=== PATIENT | female | born 1980 | race African-American/Black ===

== ENCOUNTER 2018-01-19 10:26 | Day surgery (SDC) | payer OTHER ==
[2018-01-18 13:12] VITALS: BMI 32.3
[2018-01-19] MEDS ORDERED: LIDOCAINE HCL/PF 2% SDV 5ML VIAL ONE (11:22)
[2018-01-19] MEDS ORDERED: PROPOFOL 20 ML ONE (11:23)
[2018-01-19] MEDS ORDERED: MIDAZOLAM HCL 2 MG/2 ML SINGLE DOSE VIAL ONE (11:23)
[2018-01-19] MEDS ORDERED: ROCURONIUM BROMIDE 50 MG/5 ML VIAL ONE (11:23)
--- NOTE | 2018-01-19 11:41 | HP ---
Satellite [facility] - Chief Complaint History of Present Illness: 37 year old woman with ESRD on HD via Permacath. She has had severeal failed AV access attempts and now wishes to transition to peritoneal dialysis. History Source: Patient Limitations to Obtaining History: No Limitations - Past Medical History Allergies/Adverse Reactions: Allergies Allergy/AdvReac Type Severity Reaction Status Date / Time No Known Allergies Allergy Verified 01/18/18 13:12 Cardiovascular: Yes: HTN Renal/: Yes: Renal Failure, Hemodialysis ...LMP Comment: 3 years ago-pt has IUD Additional Medical History: Umbilical hernia repair as child - Current Medications Current Medications: Home Medications Medication Instructions Recorded Calcium Acetate [Phoslo -] 667 mg PO BID 01/18/18 Labetalol HCl 100 mg PO BID 01/18/18 Satellite Physical Exam - Physical Examination Vital Signs: Vital Signs Period Temp Pulse Resp BP Sys/Wetzel Pulse Ox Last 24 Hr 98.5 F-98.5 F 88-88 18-18 139-139/68-68 99 General Appearance: Alert & Oriented x3 ENT: Clear Lung: Clear to auscultation Heart: Regular rate & rhythm Abdomen: Soft, No masses Extremities: No edema Satellite Impression/Plan - Impression/Plan Impression: ESRD on HD Operative Procedure: Laparoscopic placement of peritonneal dialysis catheter Date to be Performed: 01/19/18
[2018-01-19] MEDS ORDERED: LIDOCAINE HCL 2% (20ML MULTI-DOSE VIAL) NR ONE (11:50)
[2018-01-19] MEDS ORDERED: METOPROLOL TARTRATE 5 MG/5 ML VIAL ONE (12:03)
[2018-01-19] MEDS ORDERED: BUPIVACAINE HCL/PF 0.5% (5MG/ML) 10 ML VIAL IJ ONE ×2 (12:08)
[2018-01-19] MEDS ORDERED: NEOSTIGMINE METHYLSULFATE 0.5 MG/ML - 10 ML MDV ONE (12:19)
[2018-01-19] MEDS ORDERED: GLYCOPYRROLATE 0.2 MG/1 ML VIAL ONE (12:19)
--- NOTE | 2018-01-19 12:51 | OP ---
Operative Note - Note: Operative Date: 01/19/18 Pre-Operative Diagnosis: ESRD on HD Operation: Laparoscopy, lysis of adhesions, omentopexy, placement peritoneal dialysis catheter Findings: Adhesions of omentum and uterus to anterior abdominal wall. Redundant omentum Implants: Axtell neck double cuff Tenchkoff catheter Surgeon: Kee Guerrier Anesthesiologist/CUSTOMER SERVICE ASSISTANT: Tamra Herring Anesthesia: General
[2018-01-19 14:19] VITALS: TEMP 98.2
[2018-01-19] MEDS ORDERED: ACETAMINOPHEN 325 MG TABLET (FP) PO PRN (14:51)
[2018-01-19] MEDS ORDERED: oxyCODONE HCL 5 MG TABLET PO PRN (14:52)
[2018-01-19 15:11] VITALS: BP 141/90; PULSE 77
--- NOTE | 2018-01-19 15:55 | OP ---
DATE OF OPERATION: 01/19/2018 SURGEON: Kee Maxwell MD PROCEDURE: Laparoscopy with lysis of adhesions, omentopexy, placement of peritoneal dialysis catheter. PREOPERATIVE DIAGNOSIS: End-stage renal disease, on hemodialysis. POSTOPERATIVE DIAGNOSIS: End-stage renal disease, on hemodialysis, with intra-abdominal adhesions. ANESTHESIA: General. ANESTHESIOLOGIST: Tamra Herring M.D. OPERATIVE FINDINGS: There were adhesions of the omentum and the fundus of the uterus to the anterior abdominal wall, extending down into the pelvis. OPERATIVE PROCEDURE: Following routine patient identification, general anesthesia was induced. The abdomen was prepped with ChloraPrep. A time-out was performed. Marcaine 0.5% was infiltrated subcutaneously in all incision lines. A small incision made in the midline of the upper abdomen, and Veress needle inserted atraumatically. Pneumoperitoneum was established with carbon dioxide to 15 mmHg. The needle was removed, and a 5-mm Opti-Port was placed under direct visualization. Abdominal exploration was then carried out with an angled 5-mm scope. A second 5-mm port was placed in the left abdominal wall under direct vision. A Harmonic scalpel was used to divide adhesions of omentum and the uterus to the anterior abdominal wall, to free the pelvis for catheter placement. The omentum appeared to be redundant and required omentopexy. A 20-gauge spinal needle was inserted in the right upper quadrant under direct visualization, and a 2-0 Prolene suture advanced into the peritoneal cavity, where it was grasped by a non-crushing clamp. The needle was removed. Then a Yo-Mahsa suture passer was advanced through the same incision, at a different site in the abdominal wall fascia, through the omentum, and the suture was grasped and pulled out of the abdominal wall incision and tied securely, fixing the omentum to the right upper quadrant. An incision was then made above and to the left of the umbilicus, and an 8-mm bladeless trocar was advanced under visualization to the underside of the peritoneum, and it was then directed inferiorly towards the pelvis. The trocar was brought into the peritoneal cavity at the top of the true pelvis. A [place]-neck, curled, double-cuffed Tenckhoff catheter was then straightened with a wire and passed through the 8-mm port and was deployed into the pelvis. The port was removed, leaving the inner cuff just under the fascia and the outer cuff at the skin level. A curved metal tunneler was then attached to the end of the catheter and was passed in the subcutaneous plan to exit in the right lower quadrant at the previously marked site. Pneumoperitoneum was evacuated. The Luer-Frank adaptor was attached of the catheter, and 1 liter of saline was run into the peritoneal cavity under gravity drainage in under 3 minutes. The bag was dropped to floor, and the fluid drained quickly and was capped at 600 mL. All ports were removed. The subcutaneous tissues were closed with interrupted sutures of 3-0 Vicryl and the skin incisions were all closed with subcuticular suture of 4-0 Biosyn. Dermabond glue was used as a dressing. The catheter was adhered to the skin at the exit site with a Bioclusive dressing, and covered with an ABD. The patient was then extubated and taken to the recovery room in stable condition. KEE MAXWELL M.D. PEMA/[id number]
== END 2018-01-19 15:30 | disposition home or self-care (01) ==
LOC: JASU-SURG 10:26
PROVIDERS: ATTEND Surgery
PROC: 0WHG43Z Insertion of Infusion Device into Peritoneal Cavity, Percutaneous Endoscopic Approach (ICD-10-PCS; principal; 2018-01-19 11:00)
DX: I12.0 Hypertensive chronic kidney disease with stage 5 chronic kidney disease or end stage renal disease (principal); Z99.2 Dependence on renal dialysis
CPT/HCPCS: 36415; 84132; 84703; 94760